=== PATIENT | female | born 2000 | race Two or more races ===

== ENCOUNTER 2023-02-17 17:40 | Emergency (ER) | payer OTHER ==
[~2023-02-17] VITALS: Ht 170.2 cm; Wt 70.3 kg
== END 2023-02-17 19:26 | disposition home or self-care (01) ==
LOC: ER 17:40
DX: S01.501A Unspecified open wound of lip, initial encounter (principal); W18.39XA Other fall on same level, initial encounter; Y93.89 Activity, other specified; Y92.89 Other specified places as the place of occurrence of the external cause; Y99.8 Other external cause status

== ENCOUNTER → 2023-02-24 | Emergency (ER) | payer OTHER | END | disposition left against medical advice (07) | LOC: ER 00:25 | DX: Z53.21 Procedure and treatment not carried out due to patient leaving prior to being seen by health care provider (principal) ==

== ENCOUNTER 2024-08-18 14:44 | Emergency (ER) | payer OTHER ==
[~2024-08-18] VITALS: Ht 170.2 cm; Wt 68.0 kg
[2024-08-18] MEDS ORDERED: PENICILLIN G BENZATHINE LA 1.2 MMU/2 ML DISP.SYRIN IM ONE (16:15)
[2024-08-18] MEDS ORDERED: CEFTRIAXONE SODIUM 1,000 MG VIAL IM ONE (16:30)
== END 2024-08-18 16:44 | disposition home or self-care (01) ==
LOC: ER 14:46
DX: H93.8X2 Other specified disorders of left ear (principal)